=== PATIENT | male | born 1955 | race Caucasian/White ===

== ENCOUNTER 2018-08-22 06:18 | Day surgery (SDC) | payer OTHER ==
[~2018-08-22] VITALS: Ht 175.3 cm; Wt 91.4 kg
[~2018-08-22 06:18] MED LIST: NO MEDS
[2018-08-22] MEDS ORDERED: vitamin d3 (07:13)
[2018-08-22 07:40] VITALS: BP 130/86; PULSE 61; RESP 16
[2018-08-22] MEDS ORDERED: FENTAnyl 50 MCG/ML VIAL ONE (08:47)
[2018-08-22] MEDS ORDERED: MIDAZOLAM 1 MG/ML 2 ML INJ ONE ×3 (08:47→08:48)
[2018-08-22 09:31] VITALS: BP 122/85; RESP 20
== END 2018-08-22 15:30 | disposition home or self-care (01) ==
LOC: GIL 06:18
PROVIDERS: ATTEND Internal Medicine Gastroenterology
DX: D12.5 Benign neoplasm of sigmoid colon (principal); K64.8 Other hemorrhoids
CPT/HCPCS: 45380; 88305; J2250; J3010; Z7610